=== PATIENT | male | born 1930 | race Caucasian/White ===

== ENCOUNTER 2016-02-18 08:53 | Emergency (ER) | payer OTHER, MEDICARE ==
[~2016-02-18] VITALS: Ht 177.8 cm; Wt 72.6 kg
--- NOTE | 2016-02-18 09:03 | ED MVC/FALL/TRAUMA COMPLAINT ---
History of Present Illness General Chief Complaint: Fall Stated Complaint: FALL IN PARKING LOT Source: patient Exam Limitations: no limitations Vital Signs & Intake/Output Vital Signs & Intake/Output Vital Signs Date Time Temp Pulse Resp B/P Pulse O2 O2 Flow FiO2 Ox Delivery Rate 02/17 0914 98.2 88 20 132/61 98 Allergies Coded Allergies: MDX - Amoxicillin (Amoxicillin) (ANGIEDEMA 06/15/11) MDX - Fluorometholone (UNKNOWN 06/15/11) MDX - Naproxen (ANGIODEMA 06/15/11) MDX - Penicillin (UNKNOWN 06/15/11) Triage Nurses Notes Reviewed? yes HPI: 85-year-old male who tripped while walking in a parking lot while coming in to have a interventional radiology procedure. He states that he "fell forward in slow motion". Fallen onto his knees and then his hands first and was holding onto his at the time. He states that the hospital consist ER for evaluation, he has no complaints. He does not have any head injury, he has no pain, no confusion, no weakness no syncope. (HARLAN MONDRAGON) Past History Medical History Any Pertinent Medical History? see below for history Cardiovascular: hypertension Gastrointestinal: HERNIA Other Medical Hx: BPH Influenza Vaccine: 11/27/07 Surgical History Surgical History: TURP Psychosocial History Who do you live with Spouse Services at Home NONE What is your primary language Portuguese Family History Hx Contributory? No (HARLAN MONDRAGON) Review of Systems Review of Systems Constitutional: Reports: see HPI. Eyes: Reports: no symptoms. Ears, Nose, Throat, Mouth: Reports: no symptoms. Respiratory: Reports: no symptoms. Cardiovascular: Reports: no symptoms. Gastrointestinal/Abdominal: Reports: no symptoms. Genitourinary: Reports: no symptoms. Musculoskeletal: Reports: no symptoms. Skin: Reports: no symptoms. Neurological/Psychological: Reports: no symptoms. All Other Systems: Reviewed and Negative (HARLAN MONDRAGON) Physical Exam Physical Exam General Appearance: well developed/nourished Comments: Well-developed well-nourished person in no acute distress HEENT: Atraumatic, Normal EENT exam, extraocular motion intact, no nystagmus. Pupils equally round and reactive to light. Nose is atraumatic. Pharynx normal. No swelling or edema. Neck: Supple, no lymphadenopathy, normal range of motion without pain or tenderness Back: Nontender, no CVA tenderness. Full range of motion Cardiovascular: Regular rate and rhythms no murmurs, normal JVP Respiratory: Chest nontender. No respiratory distress. Breath sounds clear to auscultation bilaterally Abdomen: Soft, nontender nondistended, no appreciable organomegaly. Normal bowel sounds. No ascites Extremity: No edema, no calf tenderness to palpation, normal and equal pulses. Full range of motion, no signs of trauma or injury to the extremities. Neuro: Alert oriented x3, motor sensory normal, cranial nerves II through XII grossly intact. Skin: No appreciable rash on exposed skin, skin is warm and dry. Psych: Mood and affect is normal, memory and judgment is normal. Core Measures ACS in differential dx? No Severe Sepsis Present: No Septic Shock Present: No (HARLAN MONDRAGON) Progress Differential Diagnosis: aoritic dissection, abd injury, C/T/L spine injury, ext injury, ICH, pelvis injury, pnemothorax, spinal cord injury Plan of Care: Patient with a mild fall, no trauma noted, he is asymptomatic and is stable for discharge (HARLAN MONDRAGON) Departure Departure Disposition: HOME OR SELF CARE Condition: Stable Clinical Impression Primary Impression: Fall Qualifiers: Encounter type: initial encounter Qualified Code: W19.XXXA - Unspecified fall, initial encounter Referrals: CARLOS BROWN,JOSE Arambula (PCP/Family) Additional Instructions: Return to the emergency room if you're feeling worsening or severe headaches, nausea, vomiting, confusion. You may take Tylenol for pain. Follow-up with your doctor with any concerns in the next 3-5 days. Departure Forms: Customer Survey General Discharge Information (HARLAN MONDRAGON) PA/SENIOR STOCK PLAN ADMINISTRATOR Co-Sign Statement Statement: ED Attending supervision documentation- [X] I saw and evaluated the patient. I have also reviewed all the pertinent lab results and diagnostic results. I agree with the findings and the plan of care as documented in the PA's/SENIOR STOCK PLAN ADMINISTRATOR's documentation. [] I have reviewed the ED Record and agree with the PA's/SENIOR STOCK PLAN ADMINISTRATOR's documentation. [] Additions or exceptions (if any) to the PAs/SENIOR STOCK PLAN ADMINISTRATOR's note and plan are summarized below: [] (ELIZABETH BROWN,TIFFANY Thornton)
[2016-02-18 09:14] VITALS: BP 132/61
== END 2016-02-18 09:24 ==
LOC: ERH 08:53
DX: Z04.3 Encounter for examination and observation following other accident (principal); W01.0XXA Fall on same level from slipping, tripping and stumbling without subsequent striking against object, initial encounter; Y93.01 Activity, walking, marching and hiking; Y92.481 Parking lot as the place of occurrence of the external cause
CPT/HCPCS: 99282